=== PATIENT | female | born 1995 | race Caucasian/White ===

== ENCOUNTER 2021-11-09 21:08 | Emergency (ER) | payer SELFPAY | END 2021-11-09 22:19 | disposition home or self-care (01) | LOC: CSHERS 21:08 | DX: J02.0 Streptococcal pharyngitis (principal); Z79.899 Other long term (current) drug therapy | CPT/HCPCS: 87430; 99283 ==

== ENCOUNTER 2021-12-01 18:38 | Emergency (ER) | payer SELFPAY | END 2021-12-01 19:22 | disposition home or self-care (01) | LOC: CSHERS 18:38 → EEVIPCON 18:38 → CSHERS 19:22 | DX: U07.1 COVID-19 (principal) | CPT/HCPCS: 99283 ==

== ENCOUNTER 2021-12-20 15:17 | Emergency (ER) | payer SELFPAY | END 2021-12-20 16:10 | disposition home or self-care (01) | LOC: CSHERS 15:17 | DX: F32.A Depression, unspecified (principal); F41.9 Anxiety disorder, unspecified | CPT/HCPCS: 99283 ==

== ENCOUNTER 2021-12-26 11:26 | Emergency (ER) | payer SELFPAY | END 2021-12-26 12:15 | disposition home or self-care (01) | LOC: CSHERS 11:26 | DX: J06.9 Acute upper respiratory infection, unspecified (principal); Z20.822 Contact with and (suspected) exposure to COVID-19 | CPT/HCPCS: 87807; 99283; U0003; U0005 ==

== ENCOUNTER 2022-02-25 19:13 | Emergency (ER) | payer SELFPAY | END 2022-02-25 22:53 | disposition home or self-care (01) | LOC: CSHERS 19:13 | DX: J06.9 Acute upper respiratory infection, unspecified (principal) | CPT/HCPCS: 87081; 87430; 87804; 99283 ==